=== PATIENT | male | born 1970 | race Caucasian/White ===

== ENCOUNTER 2018-03-25 14:39 | Emergency (ER) | payer BC, OTHER ==
[2018-03-25] MEDS ORDERED: ASPIRIN 81 MG CHEWABLE TABLET PO ONE (14:48)
[2018-03-25] MEDS ORDERED: HEPARIN SODIUM 1000 UNIT/1 ML 10ML VIAL IVP ONE (14:49)
--- NOTE | 2018-03-25 14:49 | Emergency Department Record ---
History of Present Illness - General Chief Complaint: Chest Pain Stated Complaint: CHEST PAIN Time Seen by Provider: 03/25/18 14:45 Source: Patient, Family Mode of Arrival: Ambulatory Limitations: No limitations - History of Present Illness Initial Comments: The patient is here due to a 30 minute hx of sharp aching retrosternal CP with radiation to his arms mildly. He has had STIVEN and sweating with it. The patient has no hx of similar issues and no cardiac hx. His only cardiac risk factor is tobacco use. MD Complaint: Chest pain Onset/Timin -: Minutes(s) Onset: During rest Severity: Severe Review of Systems Constitutional: Denies: Chills, Fever Eyes: Denies: Eye discharge ENT: Denies: Congestion Respiratory: Denies: Cough, Dyspnea Cardiovascular: Reports: Chest pain Endocrine: Denies: Fatigue Gastrointestinal: Denies: Abdominal pain, Nausea Genitourinary: Denies: Dysuria Musculoskeletal: Denies: Arthralgia Past Medical History - SOCIAL HISTORY Smoking Status: Current every day smoker Alcohol Use: None - RESPIRATORY Hx Respiratory Disorders: No - CARDIOVASCULAR Hx Cardio Disorders: No Physical Exam - General General Appearance: Alert, Oriented x3, Cooperative, Mild distress - Head Head exam: Atraumatic, Normocephalic, Normal inspection - Eye Eye exam: Normal appearance, PERRL, EOMI - ENT Throat exam: Normal inspection. negative: Tonsillar erythema, Tonsillar exudate - Neck Neck exam: Normal inspection, Full ROM. negative: Tenderness - Respiratory Respiratory exam: Normal lung sounds bilaterally. negative: Respiratory distress - Cardiovascular Cardiovascular Exam: Regular rate, Normal rhythm, Normal heart sounds - GI/Abdominal GI/Abdominal exam: Soft, Normal bowel sounds. negative: Tenderness - Extremities Extremities exam: Normal inspection, Full ROM, Normal capillary refill. negative: Tenderness - Neurological Neurological exam: Alert, Normal gait. negative: Abnormal gait, Motor sensory deficit Course - Reevaluation(s) Reevaluation #1: I did discuss with the patient and family that it appears he is having an Inf wall NM. Due to that [place] [facility] [place]. I then did discuss the case with Dr. Matias Sandoval and he did accept the patient in transfer for Cardiology intervention. I then also did discuss the case with Dr. Sheriff in the ER who accepted the patient to the ER first. 03/25/18 14:57 Reevaluation #2: The patient is doing OK at this time. He is hemodynamically stable and we are [place] [facility] [place] 03/25/18 15:01 Reevaluation #3: The patient is feeling better. His pain is down to a 7/10 at this time and his BP improving. 03/25/18 15:14 Medical Decision Making - Data Complexity MDM Data: Labs Ordered and/or Reviewed, X-Ray Ordered and/or Reviewed, EKG Ordered and/or Reviewed - Lab Data Result diagrams: 03/25/18 14:50 03/25/18 14:50 - EKG Data -: EKG Interpreted by Me EKG: Abnormal EKG, ST Elevation NM (STEMI) (Inf Wall.) - Radiology Data Radiology results: Image reviewed (CXR: Neg.) Critical Care Time Critical Care Time: Yes Total Critical Care Time: 40 Critical Care Time: There was a total of 40 minutes of CC time. Disposition Disposition: Transfer Clinical Impression: ST elevation (STEMI) myocardial infarction Qualifiers: Involved coronary artery: unspecified coronary artery Qualified Code(s): I21.3 - ST elevation (STEMI) myocardial infarction of unspecified site Disposition: Acute Care Hospital [place] [facility] [place] For Transfer: Acute [place] Accepting Physician: [email or web address]. Time Discussed w/Accepting Physician: 14:59 Condition: (2) Stable Instructions: Chest Pain (ED) Forms: Patient Portal Access Time of Disposition: 14:59 Quality - Quality Measures Quality Measures: N/A - Blood Pressure Screening View Details: Yes Does Patient Have Any of the Following: No Blood Pressure Classification: Hypertensive Reading Systolic Measurement: 200 Diastolic Measurement: 120 Screening for High Blood Pressure: < First Hypertensive BP, F/U Documented > [ [id number]] First Hypertensive Follow-up Interventions: Referral to alternative/primary care provider.
[2018-03-25] MEDS ORDERED: ONDANSETRON HCL IV 4 MG/2 ML VIAL IVP ONE (14:50)
[2018-03-25] MEDS ORDERED: MORPHINE SULFATE 10 MG/ML VIAL IVP ONE (14:50)
[2018-03-25] MEDS ORDERED: NITROGLYCERIN 0.4MG SL TABLET #25 BTL SL ONE (14:51)
[2018-03-25 14:57] LABS: BASO % 0.4 % (0-6); EOS % 2.2 % (0-6); GRAN % 53.9 % (47-80); HEMATOCRIT 45.2 % (42.0-52.0); HEMOGLOBIN 16.1 gm/dl (14.0-18.0); LYMPH % 33.8 % (16-45); MEAN CORPUSCULAR HEMOGLOBIN 33.5 pg (27-33); MEAN CORPUSCULAR HGB CONC 35.6 g/dl (32-36); MEAN PLATELET VOLUME 10.1 fl (7.4-10.4); MONO % 9.7 % (0-9); PLATELET COUNT 289 K/uL (130-400); RED BLOOD COUNT 4.81 M/uL (4.40-5.70); WHITE BLOOD COUNT W/O DIFF 13.8 K/uL (4.2-12.2)
[2018-03-25] MEDS ORDERED: NITROGLYCERIN/D5W 50 MG/250 ML ML IV SCH (15:00)
[2018-03-25 15:10] LABS: BLOOD UREA NITROGEN 9 mg/dL (6-20); PARTIAL THROMBOPLASTIN TIME 27.5 SECONDS (24.5-39.1); PROTHROMBIN TIME (PATIENT) 10.4 SECONDS (9.5-12.1)
[2018-03-25 15:11] LABS: CREATININE 0.9 mg/dL (0.7-1.2); EST GLOMERULAR FILTRATION RATE > 60 mL/min
[2018-03-25 15:13] LABS: GLUCOSE,RANDOM 111 mg/dL (74-109)
[2018-03-25 15:16] LABS: CREATINE PHOSPHOKINASE 217 U/L (39-308)
[2018-03-25 15:18] LABS: CKMB 3.4 ng/mL (<6.73)
--- NOTE | 2018-03-28 10:21 | RADIOLOGY REPORT ---
EXAM: PORTABLE CHEST HISTORY: CHEST PAIN. TECHNIQUE: A single mobile upright view of the chest was obtained. Comparison: None. FINDINGS: The heart is not enlarged and the pulmonary vasculature is nondilated. The lungs and pleural spaces are clear. There are mild degenerative end plate changes scattered within the visualized spine. IMPRESSION: NO RADIOGRAPHIC EVIDENCE OF ACUTE CARDIOPULMONARY DISEASE. JOB NUMBER: [id number] MTDD
== END 2018-03-25 15:18 | disposition short-term general hospital (02) ==
LOC: ER 14:39
DX: I21.3 ST elevation (STEMI) myocardial infarction of unspecified site (principal); R06.00 Dyspnea, unspecified; F17.210 Nicotine dependence, cigarettes, uncomplicated
CPT/HCPCS: 71045; 80048; 82550; 82553; 84484; 85025; 85610; 85730; 93005; 93010; 96365; 96375; 99291; J2270; J2405